=== PATIENT | male | born 1970 | race Caucasian/White ===

== ENCOUNTER 2020-03-15 08:33 | Day surgery (SDC) | payer BC ==
[~2020-03-15 08:33] MED LIST: Lactated Ringers 1,000 ML IV SCH; Lidocaine 1%/Sod Bicarbonate in NS 8.4% 1 ML Syringe IDERM PRN; Sodium Chloride 0.9% 10 ML Syringe FLUSH PRN
--- NOTE | 2020-03-15 08:47 | PCM.PREANE ---
Preanesthetic Assessment - Procedure Proposed Procedure: Colonoscopy - Anesthesia/Transfusion/Family Hx Anesthesia History: Prior Anesthesia Reaction (nausea) Family History of Anesthesia Reaction: No Transfusion History: No Prior Transfusion(s) - Review of Systems General: No Symptoms Pulmonary: No Symptoms Cardiovascular: No Symptoms Gastrointestinal: Abdominal Pain (hunger pains) Neurological: No Symptoms Other: Reports: None - Physical Assessment NPO Status Date: 03/14/20 NPO Status Time: 04:00 Height: 1.83 m Weight: 181.7 kg ASA Class: 2 Mental Status: Alert & Oriented x3 Airway Class: Mallampati = 1 Dentition: Reports: Normal Dentition, Short Pump(s) Thyro-Mental Finger Breadths: 3 Mouth Opening Finger Breadths: 3 ROM/Head Extension: Full Lungs: Clear to Auscultation, Normal Respiratory Effort Cardiovascular: Regular Rate, Regular Rhythm - Allergies Allergies/Adverse Reactions: Allergies Allergy/AdvReac Type Severity Reaction Status Date / Time amoxicillin [From Amoxil] Allergy Cannot Verified 03/14/20 12:31 Remember grass pollen Allergy Cannot Verified 03/14/20 12:31 Remember - Blood Blood Available: No Product(s) Available: None - Anesthesia Plan Pre-Op Medication Ordered: None - Acknowledgements Anesthesia Type Planned: MAC Pt an Appropriate Candidate for the Planned Anesthesia: Yes Alternatives and Risks of Anesthesia Discussed w Pt/Guardian: Yes Pt/Guardian Understands and Agrees with Anesthesia Plan: Yes PreAnesthesia Questionnaire HEENT History: Reports: Allergic Rhinitis Cardiovascular History: Reports: None Respiratory History: Reports: None Gastrointestinal History: Reports: None Genitourinary History: Reports: None COLD MEAT COOK History: Reports: None Musculoskeletal History: Reports: Other (See Below) Other Musculoskeletal History: arhtralgia, body aches Neurological History: Reports: None Other Psychiatric History: fatigue Endocrine/Metabolic History: Reports: None Hematologic History: Reports: None Immunologic History: Reports: None Oncologic (Cancer) History: Reports: None Dermatologic History: Reports: Other (See Below) Other Dermatologic History: seborrheic keratosis - Infectious Disease History Infectious Disease History: Reports: None - Past Surgical History Head Surgeries/Procedures: Reports: None HEENT Surgical History: Reports: Tonsillectomy Cardiovascular Surgical History: Reports: None Respiratory Surgical History: Reports: None GI Surgical History: Reports: None Female Surgical History: Reports: None Male Surgical History: Reports: None Endocrine Surgical History: Reports: None Other Neurological Surgeries/Procedures: neck surgery Musculoskeletal Surgical History: Reports: Arthroscopic Knee Oncologic Surgical History: Reports: None Dermatological Surgical History: Reports: None - SUBSTANCE USE Tobacco Use Status *Q: Never Tobacco User Tobacco Use Within Last Twelve Months: No Second Hand Smoke Exposure: No Days Per Week of Alcohol Use: 1 Number of Drinks Per Day: 0 Total Drinks Per Week: 0 Recreational Drug Use History: No - HOME MEDS Home Medications: Home Meds Glucosam/Chondr/Collagn/Hyalur [Glucosamine & Chondroitin Cap] 1 cap PO DAILY 03/14/20 [History] - CURRENT (IN HOUSE) MEDS Current Meds: Current Medications Lactated Ringer's (Ringers, Lactated) 1,000 mls @ 125 mls/hr IV ASDIRECTED TEODORA Stop: 03/15/20 23:00 Lidocaine/Sodium Bicarbonate (Buffered Lidocaine 1% In Ns 8.4%) 0.25 ml IDERM ONETIME PRN PRN Reason: Prior to IV Start Stop: 03/15/20 18:00 Sodium Chloride (Saline Flush) 10 ml FLUSH ASDIRECTED PRN PRN Reason: Keep Vein Open Stop: 03/15/20 18:00
[2020-03-15] MEDS ORDERED: Midazolam 1 MG/ML 2 ML SDV ONE (08:59)
[2020-03-15] MEDS ORDERED: Lidocaine 1% 4 ML ONE (08:59)
[2020-03-15] MEDS ORDERED: Propofol 200 MG/20 ML SDV ONE ×2 (08:59→09:17)
[2020-03-15] MEDS ORDERED: fentaNYL 100 MCG/2 ML SDV ONE ×2 (08:59→09:31)
--- NOTE | 2020-03-15 09:42 | PCM.PRNOTE ---
- Free Text/Narrative Note: Date: 03/15/2020 Procedure: screening colonoscopy Endoscopist: Cole Moralez MD Findings: prep was very good. Single subcentimeter sessile polyp removed in sigmoid about 20 cm from anal verge. Detailed Report: The patient was taken to the endoscopy suite and placed in left lateral decubitus position. Timeout was performed and monitored anesthesia care was initiated. Visual inspection of the anus revealed no abnormalities. Digital rectal exam was unremarkable, the prostate felt normal and no lesions were appreciated. The colonoscope was inserted and advanced all the way to the cecum. The prep was very good. The appendiceal orifice and ileocecal valve were visualized. The scope was slowly withdrawn and mucosal surfaces were carefully inspected. The only finding was a small subcentimeter sessile polyp in the sigmoid colon, measuring approximately 20 cm from the anal verge. This was removed with cold forceps in its entirety. The base tissue was fulgurated. On retroflexion within the rectum, minor internal hemorrhoids were appreciated. Air was suctioned prior to withdrawal of the scope. The patient tolerated the procedure well.
--- NOTE | 2020-03-15 09:46 | PCM48HPAN ---
Post Anesthesia Note - EVALUATION WITHIN 48HRS OF ANESTHETIC Vital Signs in Normal Range: Yes Patient Participated in Evaluation: Yes Respiratory Function Stable: Yes Airway Patent: Yes Cardiovascular Function Stable: Yes Hydration Status Stable: Yes Pain Control Satisfactory: Yes Nausea and Vomiting Control Satisfactory: Yes Mental Status Recovered: Yes Vital Signs: Last Vital Signs Temp 36.6 C 03/15/20 08:40 Pulse 62 03/15/20 08:40 Resp 16 03/15/20 08:40 BP 127/82 03/15/20 08:40 Pulse Ox 97 03/15/20 08:40 - COMMENTS/OBSERVATIONS Free Text/Narrative:: no anesthesia complications noted
== END 2020-03-15 10:21 | disposition home or self-care (01) ==
LOC: JD.SDS 08:33
PROVIDERS: ATTEND Surgery
DX: Z12.11 Encounter for screening for malignant neoplasm of colon (principal); K63.5 Polyp of colon; Z98.890 Other specified postprocedural states; Z88.1 Allergy status to other antibiotic agents
CPT/HCPCS: 45380; J2001; J2250; J2704; J3010; J7120; 00812